=== PATIENT | female | born 1930 | race Hispanic/Latino ===

== ENCOUNTER 2018-11-27 19:30 | Emergency (ER) | payer MEDICARE, BC ==
[2018-11-27 19:51] VITALS: RESP 18; BMI 26.5
--- NOTE | 2018-11-27 19:51 | ED PDOC ---
Arrival/HPI <Vi Yu - Last Filed: 11/27/18 21:08> - General Historian: Patient - History of Present Illness Narrative History of Present Illness (Text): Patient is an 88 year old female with past medical history of breast cancer s/p mastectomy, hypertension, hyperlipidemia presenting with chief complaint of lightheadedness and dizziness which began three hours prior. She states she felt as if she was going to pass out. This happened once before a few months ago which self resolved. Offers no other complaints. Denies any recent illnesses or sick contacts. Denies loss of consciousness, fevers, chills, chest pain, shortness of breath, abdominal pain, diarrhea, dysuria. Time/Duration: 1-3 hours Symptom Onset: Sudden Symptom Course: Improving Activities at Onset: Rest <Alin Paul - Last Filed: 11/27/18 22:11> - General Chief Complaint: Dizziness/Lightheaded Time Seen by Provider: 11/27/18 19:38 Past Medical History - Provider Review Nursing Documentation Reviewed: Yes - Cardiac Hx Hypertension: Yes - Psychiatric Hx Substance Use: No - Anesthesia Hx Anesthesia: Yes Hx Anesthesia Reactions: No Hx Malignant Hyperthermia: No <Alin Paul - Last Filed: 11/27/18 22:11> Family/Social History - Physician Review Nursing Documentation Reviewed: Yes Family/Social History: No Known Family HX Smoking Status: Never Smoked Hx Alcohol Use: No Hx Substance Use: No <Alin Paul - Last Filed: 11/27/18 22:11> Allergies/Home Meds <Vi Yu - Last Filed: 11/27/18 21:08> <Alin Paul - Last Filed: 11/27/18 22:11> Allergies/Adverse Reactions: Allergies Penicillins Allergy (Verified 11/27/18 19:35) RASH Home Medications: Home Meds Medication Instructions Recorded Confirmed Unobtainable 11/27/18 11/27/18 Review of Systems - Review of Systems Respiratory: Normal Cardiovascular: Normal Gastrointestinal: Normal Genitourinary Female: Normal <Alin Paul - Last Filed: 11/27/18 22:11> Physical Exam Vital Signs Temp Pulse Resp BP Pulse Ox 11/27/18 19:44 97.7 F 93 H 18 155/84 H 97 <Vi Yu - Last Filed: 11/27/18 21:08> Vital Signs Reviewed: Yes Vital Signs Temp Pulse Resp BP Pulse Ox 11/27/18 19:44 97.7 F 93 H 18 155/84 H 97 Temperature: Afebrile Blood Pressure: Hypertensive Pulse: Regular Respiratory Rate: Normal Appearance: Positive for: Well-Appearing, Comfortable Pain Distress: None Mental Status: Positive for: Alert and Oriented X 3 Finger Stick Blood Glucose: 111 - Systems Exam Head: Present: Atraumatic, Normocephalic Extroacular Muscles: Present: Other (left ptosis ) Mouth: Present: Moist Mucous Membranes Respiratory/Chest: Present: Clear to Auscultation, Good Air Exchange. No: Respiratory Distress, Accessory Muscle Use Cardiovascular: Present: Regular Rate and Rhythm, Normal S1, S2. No: Murmurs, Tachycardic Abdomen: Present: Normal Bowel Sounds. No: Tenderness, Distention Lower Extremity: Present: Normal Inspection. No: Edema Neurological: Present: GCS=15, CN II-XII Intact, Speech Normal, Motor Func Grossly Intact, Normal Sensory Function Skin: Present: Warm, Dry, Normal Color Psychiatric: Present: Alert, Oriented x 3, Normal Insight, Normal Concentration <Alin Paul L - Last Filed: 11/27/18 22:11> Medical Decision Making ED Course and Treatment: 11/27/18 20:42 Patient is a 88 year old female presenting to the emergency room complaining of dizziness and lightheadedness. In agreement with resident note, which includes further HPI details. Patient was seen and evaluated with resident, came up with plan and treatment together. 11/27/18 21:08 EXAM: CT Head Without IV contrast. CLINICAL HISTORY: Presyncope TECHNIQUE: Axial computed tomography images of the head/brain without intravenous contrast. COMPARISON: None provided. FINDINGS: BRAIN: No acute intraparenchymal hemorrhage. No mass lesion. No CT evidence for acute territorial infarct. No midline shift or extra-axial collections. There is mode rate age-appropriate cerebral and cerebellar atrophy noted. There are bilateral periventricular and subcortical white matter hypolucencies compatible with mild chronic microvascular disease. VENTRICLES: No hydrocephalus. VASCULAR: Atherosclerotic vascular plaquing is seen within the vertebral arteries and carotid siphons bilaterally. ORBITS: The orbits are unremarkable. SINUSES AND MASTOIDS: The paranasal sinuses and mastoid air cells are clear. BONES: No fracture. A radiolucent zone is seen involving the inner skull table of the the posterior left-midline posterior fossa thought compatible with pacchionian granulation tissue. SOFT TISSUES: Unremarkable. IMPRESSION: 1. No acute intracranial abnormality. 2. Moderate age-appropriate cerebral and cerebellar atrophy. 3. Mild chronic microvascular disease. 4. Atherosclerotic vascular plaquing as described above. 5. Pacchionian granulation tissue seen in the inner skull table of the posterior fossa as described above. Electronically signed on Nov 27, 2018 8:57:00 PM EDT by: Olegario Jaimes M.D., [place] Certified By [facility] Fellowship Trained MRI and CT Specialist - Lab Interpretations Lab Results: Troponin I 0.02 ng/mL 11/27/18 20:01 Total Bilirubin 0.6 mg/dL (0.2-1.3) 11/27/18 20:01 AST 38 U/L (14-36) H 11/27/18 20:01 ALT 31 U/L (7-56) 11/27/18 20:01 Alkaline Phosphatase 58 U/L (38-126) 11/27/18 20:01 Total Protein 7.6 g/dL (5.8-8.3) 11/27/18 20:01 Albumin 4.5 g/dL (3.0-4.8) 11/27/18 20:01 Globulin 3.1 gm/dL 11/27/18 20:01 Albumin/Globulin Ratio 1.5 (1.1-1.8) 11/27/18 20:01 - RAD Interpretation Radiology Orders: 11/27/18 19:51 CHEST PORTABLE [RAD] Stat 11/27/18 20:13 HEAD W/O CONTRAST [CT] Stat <Vi Yu - Last Filed: 11/27/18 21:08> ED Course and Treatment: Impression: 88 year old female with presyncope Plan: - CBC, CMP - EKG, troponin - CXR - CT head w/o contrast - Reassess and disposition Prior Visits: No prior visits to [facility] emergency department Progress Notes: 11/27/18 21:54 Labs and imaging reviewed. Patient appears comfortable and is hem odynamically stable. Spoke with Dr. Hart regarding patient status. Patient instructed to follow up at his clinic tomorrow morning between 9:30 AM and 2PM and to return to emergency department if symptoms return or worsen. Patient expressed understanding and agreement with management plan. - EKG Interpretation EKG Interpretation (Text): 11/27/18 20:04 NSR @ 93 bpm Interpreted by ED Physician: Yes Type: 12 lead EKG <Amie Paulfranny Schmid - Last Filed: 11/27/18 22:11> - PA / FILER REPAIRER / Resident Statement MD/DO has reviewed & agrees with the documentation as recorded. MD/DO has examined the patient and agrees with the treatment plan. - Scribe Statement The provider has reviewed the documentation as recorded by the Scribe Faith Soria All medical record entries made by the Scribe were at my direction and personally dictated by me. I have reviewed the chart and agree that the record accurately reflects my personal performance of the history, physical exam, medical decision making, and the department course for this patient. I have also personally directed, reviewed, and agree with the discharge instructions and disposition. <Vi Yu - Last Filed: 11/27/18 21:08> Disposition/Present on Arrival <Vi Yu - Last Filed: 11/27/18 21:08> - Present on Arrival Any Indicators Present on Arrival: No History of DVT/PE: No History of Uncontrolled Diabetes: No Urinary Catheter: No History of Decub. Ulcer: No History Surgical Site Infection Following: None - Disposition Have Diagnosis and Disposition been Completed?: Yes Disposition Time: 21:59 <BeverlyAlin Schmid - Last Filed: 11/27/18 22:11> - Disposition Diagnosis: Pre-syncope Disposition: HOME/ ROUTINE Patient Problems: Current Active Problems Problem Status Onset Pre-syncope Acute Condition: STABLE Discharge Instructions (ExitCare): Near Fainting (DC) Additional Instructions: Please follow up with Dr. Hart tomorrow at his clinic. Resume your home medications as prescribed. Return to ED if symptoms return or worsen. Referrals: Chaitanya Hart MD [Staff Provider] - Follow up with primary Forms: [employer] (Mauritanian)
[2018-11-27 20:12] LABS: BASO # 0.02 K/mm3 (0.0-2.0); BASO % 0.3 % (0.0-3.0); EOS # 0.1 (0.0-0.7); EOS % 0.7 % (1.5-5.0); HEMOGLOBIN 12.8 g/dL (12.0-16.0); LYMPH % 15.6 % (22.0-35.0); MEAN CELL VOLUME 88.1 fl (80.0-105.0); MEAN CORPUSCULAR HEMOGLOBIN 30.5 pg (25.0-35.0); MEAN CORPUSCULAR HGB CONC 34.7 g/dl (31.0-37.0); MEAN PLATELET VOLUME 9.3 fl (7.0-11.0); MONO # 0.8 (0.1-0.6); MONO % 11.2 % (1.0-6.0); RBC 4.19 10^6/uL (3.5-6.1); RED CELL DISTRIBUTION WIDTH 13.2 % (11.5-14.5); WHITE BLOOD COUNT 6.7 10^3/uL (4.5-11.0)
[2018-11-27 20:22] LABS: ALB/GLOB RATIO 1.5 (1.1-1.8); ALBUMIN 4.5 g/dL (3.0-4.8); ALT/SGPT 31 U/L (7-56); AST/SGOT 38 U/L (14-36); BLOOD UREA NITROGEN 20 mg/dL (7-21); CALCIUM 9.5 mg/dL (8.4-10.5); GFR NON-AFRICAN AMERICAN > 60
[2018-11-27 20:35] LABS: TROPONIN I 0.02 ng/mL
[2018-11-27 21:20] LABS: URINE BILIRUBIN NEGATIVE (NEGATIVE); URINE BLOOD NEGATIVE (NEGATIVE); URINE GLUCOSE (UA) NEGATIVE (NEGATIVE); URINE LEUKOCYTE ESTERASE MODERATE Leu/uL (NEGATIVE); URINE PROTEIN 30 mg/dL (<30 mg/dL); URINE UROBILINOGEN 0.2 E.U./dL (<1 E.U./dL)
[2018-11-27 21:41] LABS: URINE APPEARANCE CLEAR (CLEAR); URINE COLOR YELLOW (YELLOW)
[2018-11-27 21:42] LABS: URINE BACTERIA TRACE /hpf; URINE EPITHELIAL CELLS MANY /hpf (0-5); URINE WBC 15 - 20 /hpf (0-6)
[2018-11-27 22:04] VITALS: PULSE 88; TEMP 97.9
[2018-11-27 22:26] VITALS: BP 126/72; O2SAT 100
--- NOTE | 2018-11-28 09:19 | CARD ---
APPROVED REPORT Date of service: 11/27/2018 EKG Measurement Heart [id number] <Conclusion> Normal sinus rhythm Normal ECG
--- NOTE | 2018-11-28 10:16 | CT ---
Date of service: 11/27/2018 PROCEDURE: CT HEAD WITHOUT CONTRAST. HISTORY: Presyncope COMPARISON: None available. TECHNIQUE: Axial computed tomography images were obtained through the head/brain without intravenous contrast. Radiation dose: Total exam DLP = 875.65 mGy-cm. This CT exam was performed using one or more of the following dose reduction techniques: Automated exposure control, adjustment of the mA and/or kV according to patient size, and/or use of iterative reconstruction technique. FINDINGS: HEMORRHAGE: No acute parenchymal, subarachnoid nor extra-axial hemorrhage. BRAIN: Mild chronic periventricular white matter ischemic changes seen extending peripherally into the deep and subcortical white matter both cerebral hemispheres. In addition, there are scattered chronic bilateral basal nuclei lacunar type infarcts. Note possibility of a small hyperacute infarct cannot be excluded. Moderate generalized volume loss. Vascular calcifications both carotid siphons and vertebral arteries. VENTRICLES: No obstructive hydrocephalus. CALVARIUM: Calvarium intact PARANASAL SINUSES: Unremarkable as visualized. No significant inflammatory changes. MASTOID AIR CELLS: Unremarkable as visualized. No inflammatory changes. OTHER FINDINGS: Phthisis bulbi left globe.. Right-sided cataract IMPRESSION: Mild chronic periventricular white matter ischemic changes seen extending peripherally into the deep and subcortical white matter both cerebral hemispheres. In addition, there are scattered chronic bilateral basal nuclei lacunar type infarcts. Note possibility of a small hyperacute infarct cannot be excluded. Moderate generalized volume loss.
--- NOTE | 2018-11-28 12:08 | RAD ---
Date of service: 11/27/2018 HISTORY: Presyncope COMPARISON: Comparison chest 01/09/2012. TECHNIQUE: 1 view obtained. FINDINGS: LUNGS: Low lung volumes common crowded bronchovascular markings and minor bibasilar atelectasis. PLEURA: No significant pleural effusion identified, no pneumothorax apparent. CARDIOVASCULAR: No aortic atherosclerotic calcification present. Normal cardiac size. No pulmonary vascular congestion. OSSEOUS STRUCTURES: No significant abnormalities. VISUALIZED UPPER ABDOMEN: Normal. OTHER FINDINGS: Multiple metallic clips overlying the left axillary region and left lateral upper hemithorax unchanged IMPRESSION: Low lung volumes common crowded bronchovascular markings and minor bibasilar atelectasis.
== END 2018-11-27 22:19 | disposition home or self-care (01) ==
LOC: ED 19:30
DX: R55 Syncope and collapse (principal); I10 Essential (primary) hypertension